=== PATIENT | male | born 1985 | race African-American/Black ===

== ENCOUNTER 2016-12-04 17:03 | Emergency (ER) | payer BC, OTHER ==
[~2016-12-04] VITALS: Ht 165.1 cm; Wt 154.3 kg
[2016-12-04 18:10] LABS: BILIRUBIN,URINE NEGATIVE (NEG); GLUCOSE,URINE NEGATIVE (NEG); NITRITE,URINE NEGATIVE (NEG); PROTEIN,URINE NEGATIVE (NEG-TRACE); UROBILINOGEN,URINE 0.2 mg/dL (0.2 mg/dL)
[2016-12-04] MEDS ORDERED: IV NORMAL SALINE 500ML BAG 500 ML IV ONE (18:15)
[2016-12-04] MEDS ORDERED: ONDANSETRON PF 4 MG/2 ML VIAL. IV ONE (18:15)
[2016-12-04 18:16] LABS: BARBITURATES NEG (NEG); BENZODIAZEPINES NEG (NEG); CANNABINOIDS NEG (NEG); COCAINE NEG (NEG); METHADONE NEG (NEG); OPIATES NEG (NEG); PHENCYCLIDINE NEG (NEG)
[2016-12-04 18:25] LABS: BACTERIA,URINE 0 /HPF (0-FEW); RBC,URINE 0 /HPF (0-2); SQUAMOUS EPITHELIAL CELL,UR OCC /LPF; WBC,URINE OCC /HPF (0-4)
--- NOTE | 2016-12-04 18:32 | PHYS DOC ---
Past Medical History Past Medical History: Diverticulitis, Other Additional Past Medical Histor: obesity Past Surgical History: Cholecystectomy Alcohol Use: None Drug Use: None Adult General Chief Complaint Chief Complaint: Palpitations HPI HPI Patient is a 31 year old male who presents with complaint of palpitations and dizziness that took place approximately 1 hour prior to arrival. Patient states that he was at work when symptoms occurred. 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 Patient suddenly started feeling fluttering in his chest and became very lightheaded at onset of symptoms. Patient denied any associated chest pain, nausea, or diaphoresis. The patient states currently he feels much better but is still feeling occasional fluttering in his chest. Patient denies any known health problems and does not take any medications currently. Patient denies history of similar symptoms. Patient denies any illicit drug use. Review of Systems Review of Systems Constitutional: Lightheadedness, denies fever or chills [] Eyes: Denies change in visual acuity, redness, or eye pain [] HENT: Denies nasal congestion or sore throat [] Respiratory: Denies cough or shortness of breath [] Cardiovascular: Palpitations[] GI: Denies abdominal pain, nausea, vomiting, bloody stools or diarrhea [] : Denies dysuria or hematuria [] Musculoskeletal: Denies back pain or joint pain [] Integument: Denies rash or skin lesions [] Neurologic: Denies headache, focal weakness or sensory changes [] Current Medications Current Medications Current Medications Medications (Trade) Dose Ordered Sig/Basil Start Time Stop Time Status Last Admin Dose Admin Ondansetron HCl (Zofran) 4 mg 1X ONCE 12/04/16 18:15 12/04/16 18:16 DC 12/04/16 18:14 4 MG Sodium Chloride 500 ml @ 500 mls/hr 1X ONCE 12/04/16 18:15 12/04/16 19:14 DC 12/04/16 18:12 500 MLS/HR Allergies Allergies Allergies Coded Allergies Type Severity Reaction Last Updated Verified No Known Drug Allergies 05/26/13 No Physical Exam Physical Exam Constitutional: Alert, morbidly obese, afebrile, no acute distress. [] HENT: Normocephalic, atraumatic, bilateral external ears normal, oropharynx moist, no oral exudates, nose normal. [] Eyes: PERRLA, EOMI, conjunctiva normal, no discharge. [] Neck: Normal range of motion, no tenderness, supple, no stridor. [] Cardiovascular: Regular rhythm, occasional ectopic beats, normal rate, no murmur [] Lungs & Thorax: Bilateral breath sounds clear to auscultation [] Abdomen: Bowel sounds normal, soft, no tenderness, no masses, no pulsatile masses. [] Skin: Warm, dry, no erythema, no rash. [] Back: No tenderness, no CVA tenderness. [] Extremities: No tenderness, no cyanosis, no clubbing, ROM intact, no edema. [] Neurologic: Alert and oriented X 3, normal motor function, normal sensory function, no focal deficits noted. [] Current Patient Data Vital Signs Vital Signs Date Time Temp Pulse Resp B/P (MAP) Pulse Ox O2 Delivery O2 Flow Rate FiO2 12/04/16 18:15 79 16 133/78 (96) 99 Room Air 12/04/16 17:09 97.9 97.9 Lab Values Laboratory Tests Test 12/04/16 17:13 12/04/16 18:25 Urine Color Yellow Urine Clarity Clear Urine pH 6.0 Urine Specific Hydes 1.015 Urine Protein Negative mg/dL (NEG-TRACE) Urine Glucose (UA) Negative mg/dL (NEG) Urine Ketones (Stick) Negative mg/dL (NEG) Urine Blood Negative (NEG) Urine Nitrite Negative (NEG) Urine Bilirubin Negative (NEG) Urine Urobilinogen Dipstick 0.2 mg/dL (0.2 mg/dL) Urine Leukocyte Esterase Negative (NEG) Urine RBC 0 /HPF (0-2) Urine WBC Occ /HPF (0-4) Urine Squamous Epithelial Cells Occ /LPF Urine Bacteria 0 /HPF (0-FEW) Urine Mucus Slight /LPF Urine Opiates Screen Neg (NEG) Urine Methadone Screen Neg (NEG) Urine Barbiturates Neg (NEG) Urine Phencyclidine Screen Neg (NEG) Urine Amphetamine/Methamphetamine Neg (NEG) Urine Benzodiazepines Screen Neg (NEG) Urine Cocaine Screen Neg (NEG) Urine Cannabinoids Screen Neg (NEG) Urine Ethyl Alcohol Neg (NEG) White Blood Count 10.3 x10^3/uL (4.0-11.0) Red Blood Count 4.94 x10^6/uL (4.30-5.70) Hemoglobin 13.4 g/dL (13.0-17.5) Hematocrit 40.1 % (39.0-53.0) Mean Corpuscular Volume 81 fL (79-100) Mean Corpuscular Hemoglobin 27 pg (25-35) Mean Corpuscular Hemoglobin Concent 33 g/dL (31-37) Red Cell Distribution Width 14.0 % (11.5-14.5) Platelet Count 184 x10^3/uL (140-400) Neutrophils (%) (Auto) 63 % (31-73) Lymphocytes (%) (Auto) 26 % (24-48) Monocytes (%) (Auto) 8 % (0-9) Eosinophils (%) (Auto) 2 % (0-3) Basophils (%) (Auto) 1 % (0-3) Neutrophils # (Auto) 6.5 x10^3uL (1.8-7.7) Lymphocytes # (Auto) 2.7 x10^3/uL (1.0-4.8) Monocytes # (Auto) 0.8 x10^3/uL (0.0-1.1) Eosinophils # (Auto) 0.2 x10^3/uL (0.0-0.7) Basophils # (Auto) 0.1 x10^3/uL (0.0-0.2) Sodium Level 143 mmol/L (136-145) Potassium Level 3.9 mmol/L (3.5-5.1) Chloride Level 105 mmol/L (98-107) Carbon Dioxide Level 32 mmol/L (21-32) Anion Gap 6 (6-14) Blood Urea Nitrogen 13 mg/dL (8-26) Creatinine 0.9 mg/dL (0.7-1.3) Estimated GFR (Cockcroft-Gault) 118.3 BUN/Creatinine Ratio 14 (6-20) Glucose Level 100 mg/dL (70-99) H Calcium Level 8.6 mg/dL (8.5-10.1) Total Bilirubin 0.2 mg/dL (0.2-1.0) Aspartate Amino Transferase (AST) 28 U/L (15-37) Alanine Aminotransferase (ALT) 34 U/L (16-63) Alkaline Phosphatase 106 U/L (46-116) Total Protein 7.8 g/dL (6.4-8.2) Albumin 3.5 g/dL (3.4-5.0) Albumin/Globulin Ratio 0.8 (1.0-1.7) L Laboratory Tests 12/04/16 18:25 Laboratory Tests 12/04/16 18:25 EKG EKG Interpreted by me: Heart rate 83, sinus rhythm, normal intervals, leftward axis , occasional PVCs, no acute ST/T-wave abnormalities present[] Radiology/Procedures Radiology/Procedures Two-view chest x-ray interpreted by me: No infiltrates, no effusions, normal cardiac silhouette[] Course & Med Decision Making Course & Med Decision Making Pertinent Labs and Imaging studies reviewed. (See chart for details) Patient given IV fluids in the emergency department. Patient's labwork unremarkable. Patient has no known significant past medical history. Patient shows occasional PVCs but no other cardiac dysrhythmias. The patient is low risk for acute coronary syndrome. I spoke with Dr. Bourgeois of cardiology. He stated he would be willing to follow-up with the patient tomorrow in his office and stated that the patient would not need to be started on medication at this time until he sees him in the office tomorrow. Spoke with patient regarding plan of care and he was in agreement at time of discharge.[] Dragon Disclaimer Dragon Disclaimer This electronic medical record was generated, in whole or in part, using a voice recognition dictation system. Departure Departure Impression: Primary Impression: Palpitations Disposition: 01 HOME, SELF-CARE Condition: IMPROVED Referrals: NON,STAFF (PCP) NHI BOURGEOIS MD Patient Instructions: Palpitations Additional Instructions: Follow-up with Dr. Bourgeois of cardiology tomorrow. Call his office in the morning to schedule your appointment. Return to the emergency department for any worsening symptoms. BLANE MADDOX MD Dec 04, 2016 18:32
[2016-12-04 18:50] LABS: BASO # 0.1 x10^3/uL (0.0-0.2); BASO % 1 % (0-3); EOS % 2 % (0-3); HEMATOCRIT 40.1 % (39.0-53.0); HEMOGLOBIN 13.4 g/dL (13.0-17.5); LYMPH # 2.7 x10^3/uL (1.0-4.8); LYMPH % 26 % (24-48); MEAN CORPUSCULAR HEMOGLOBIN 27 pg (25-35); MEAN CORPUSCULAR HGB CONC 33 g/dL (31-37); MEAN CORPUSCULAR VOLUME 81 fL (79-100); MONO % 8 % (0-9); NEUT % 63 % (31-73); PLATELET COUNT 184 x10^3/uL (140-400); RED BLOOD COUNT 4.94 x10^6/uL (4.30-5.70); WHITE BLOOD COUNT 10.3 x10^3/uL (4.0-11.0)
[2016-12-04 19:00] LABS: CALCIUM 8.6 mg/dL (8.5-10.1); CREATININE 0.9 mg/dL (0.7-1.3); GFR 118.3; POTASSIUM 3.9 mmol/L (3.5-5.1)
[2016-12-04 19:09] LABS: ALBUMIN 3.5 g/dL (3.4-5.0); ALBUMIN/GLOBULIN RATIO 0.8 (1.0-1.7); TOTAL BILIRUBIN 0.2 mg/dL (0.2-1.0); TOTAL PROTEIN 7.8 g/dL (6.4-8.2)
[2016-12-04 20:15] VITALS: BP 168/86
--- NOTE | 2016-12-05 06:13 | EKG ---
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
--- NOTE | 2016-12-05 08:55 | RAD ---
Indication heart palpitations. Lightheadedness. Frontal and lateral views of the chest were obtained and are compared to an examination 12/11/2011. The heart, pulmonary vessels and mediastinum appear normal. The lungs are clear. There is no pleural fluid or pneumothorax. The visualized bony structures appear grossly intact. Overall there has not been a significant change compared to the previous exam. IMPRESSION: No acute or focal process. No significant change
== END 2016-12-04 20:15 | disposition home or self-care (01) ==
LOC: ER 17:03
DX: R00.2 Palpitations (principal); R42 Dizziness and giddiness; E66.01 Morbid (severe) obesity due to excess calories; Z68.43 Body mass index [BMI] 50.0-59.9, adult
CPT/HCPCS: 36415; 71020; 80053; 80307; 81001; 85025; 93005; 96361; 96374; 99285; J2405; J7040; G0479

== ENCOUNTER 2018-10-28 22:24 | Emergency (ER) | payer OTHER ==
[~2018-10-28] VITALS: Ht 165.1 cm; Wt 172.4 kg
[2018-10-29] MEDS ORDERED: IV NORMAL SALINE 1000ML BAG 1,000 ML IV ONE (00:30)
[2018-10-29] MEDS ORDERED: ASPIRIN 325 MG TABLET PO ONE (00:30)
[2018-10-29 00:36] LABS: BASO # 0.1 x10^3/uL (0.0-0.2); BASO % 1 % (0-3); EOS # 0.5 x10^3/uL (0.0-0.7); EOS % 5 % (0-3); HEMATOCRIT 39.3 % (39.0-53.0); HEMOGLOBIN 13.2 g/dL (13.0-17.5); LYMPH # 2.7 x10^3/uL (1.0-4.8); LYMPH % 26 % (24-48); MEAN CORPUSCULAR HEMOGLOBIN 27 pg (25-35); MEAN CORPUSCULAR HGB CONC 34 g/dL (31-37); MEAN CORPUSCULAR VOLUME 80 fL (79-100); MONO # 0.8 x10^3/uL (0.0-1.1); MONO % 7 % (0-9); NEUT # 6.6 x10^3/uL (1.8-7.7); NEUT % 62 % (31-73); PLATELET COUNT 210 x10^3/uL (140-400); RED BLOOD COUNT 4.91 x10^6/uL (4.30-5.70); RED CELL DISTRIBUTION WIDTH 14.8 % (11.5-14.5); WHITE BLOOD COUNT 10.6 x10^3/uL (4.0-11.0)
[2018-10-29 00:46] LABS: PROTHROMBIN TIME PATIENT 12.3 SEC (11.7-14.0)
[2018-10-29 00:48] LABS: CALCIUM 9.2 mg/dL (8.5-10.1); GFR 103.5; POTASSIUM 4.2 mmol/L (3.5-5.1)
[2018-10-29 00:50] LABS: D-DIMER 1.45 ug/mlFEU (0.00-0.50)
[2018-10-29 00:54] LABS: ALBUMIN 3.5 g/dL (3.4-5.0); ALBUMIN/GLOBULIN RATIO 0.8 (1.0-1.7); MAGNESIUM 1.6 mg/dL (1.8-2.4); TOTAL BILIRUBIN 0.3 mg/dL (0.2-1.0); TOTAL PROTEIN 7.8 g/dL (6.4-8.2)
--- NOTE | 2018-10-29 01:20 | PHYS DOC ---
Past Medical History Past Medical History: Asthma, Diverticulitis Additional Past Medical Histor: obesity Past Surgical History: Cholecystectomy Additional Past Surgical Histo: VASECTOMY Additional Information: Nonsmoker Alcohol Use: None Drug Use: None Adult General Chief Complaint Chief Complaint: CHEST PAIN HPI HPI Patient is a 33 year old male who presents with chest pain. Pt reports sudden onset of chest pain started at 20:30 last night when he was sitting on his couch watching TV. The chest pain was sharp, pleuritic and radiated to his back. He also endorses some SOB and lightheaded. Pt denies any unilateral leg tenderness. Pt reports having some cough recently but denies any hemoptysis. No recent travel. He reports that he was found to have an arrhythmia in the past and was told that it would be ok. Denies any history of cancer, starting new medications or hormone therapy. Review of Systems Review of Systems Constitutional: Denies fever or chills Eyes: Denies redness or eye pain HENT: Denies nasal congestion or sore throat Respiratory: Denies cough. Positive shortness of breath Cardiovascular: Positive chest pain. No palpitations GI: Denies abdominal pain, nausea, or vomiting : Denies dysuria or hematuria Musculoskeletal: Denies back pain or joint pain Integument: Denies rash or skin lesions Neurologic: Denies headache, focal weakness or sensory changes Complete systems were reviewed and found to be within normal limits, except as documented in this note. Current Medications Current Medications Current Medications Medications (Trade) Dose Ordered Sig/Basil Start Time Stop Time Status Last Admin Dose Admin Aspirin (Rufino Aspirin) 325 mg 1X ONCE 10/29/18 00:30 10/29/18 00:31 DC 10/29/18 00:46 325 MG Dexamethasone Sodium Phosphate (Decadron) 10 mg 1X ONCE 10/29/18 03:15 10/29/18 03:16 DC 10/29/18 04:09 10 MG Info (CONTRAST GIVEN -- Rx MONITORING) 1 each PRN DAILY PRN 10/29/18 02:00 10/29/18 04:53 DC Iohexol (Omnipaque 350 Mg/ml) 100 ml 1X ONCE 10/29/18 02:00 10/29/18 02:01 DC 10/29/18 02:40 100 ML Ketorolac Tromethamine (Toradol 15mg Vial) 15 mg 1X ONCE 10/29/18 03:15 10/29/18 03:16 DC 10/29/18 04:09 15 MG Magnesium Sulfate 50 ml @ 25 mls/hr 1X ONCE 10/29/18 01:30 10/29/18 03:29 DC 10/29/18 01:43 25 MLS/HR Sodium Chloride 1,000 ml @ 1,000 mls/hr 1X ONCE 10/29/18 00:30 10/29/18 01:29 DC 10/29/18 00:46 1,000 MLS/HR Allergies Allergies Allergies Coded Allergies Type Severity Reaction Last Updated Verified No Known Drug Allergies 05/26/13 No Physical Exam Physical Exam Constitutional: Well developed, well nourished, no acute distress, non-toxic appearance, rest comfortably in bed HENT: Normocephalic, atraumatic, oropharynx moist Eyes: PERRL, EOMI, conjunctiva normal, no discharge Neck: Normal range of motion, no tenderness, supple Cardiovascular: Heart rate normal, regular rhythm Lungs & Thorax: Bilateral breath sounds clear to auscultation, no wheezing. No tenderness on palpation. Abdomen: Soft, no tenderness Skin: Warm, dry, no erythema, no rash Back: No tenderness, no CVA tenderness Extremities: No tenderness, ROM intact, no edema Neurologic: Alert and oriented X 3, normal motor function, normal sensory function, no focal deficits noted Psychologic: Affect normal, judgement normal, mood normal Current Patient Data Vital Signs Vital Signs Date Time Temp Pulse Resp B/P (MAP) Pulse Ox O2 Delivery O2 Flow Rate FiO2 10/29/18 04:23 76 20 172/81 (111) 93 Room Air 10/28/18 22:47 97.9 97.9 Lab Values Laboratory Tests Test 10/29/18 00:25 10/29/18 03:30 White Blood Count 10.6 x10^3/uL (4.0-11.0) Red Blood Count 4.91 x10^6/uL (4.30-5.70) Hemoglobin 13.2 g/dL (13.0-17.5) Hematocrit 39.3 % (39.0-53.0) Mean Corpuscular Volume 80 fL (79-100) Mean Corpuscular Hemoglobin 27 pg (25-35) Mean Corpuscular Hemoglobin Concent 34 g/dL (31-37) Red Cell Distribution Width 14.8 % (11.5-14.5) H Platelet Count 210 x10^3/uL (140-400) Neutrophils (%) (Auto) 62 % (31-73) Lymphocytes (%) (Auto) 26 % (24-48) Monocytes (%) (Auto) 7 % (0-9) Eosinophils (%) (Auto) 5 % (0-3) H Basophils (%) (Auto) 1 % (0-3) Neutrophils # (Auto) 6.6 x10^3/uL (1.8-7.7) Lymphocytes # (Auto) 2.7 x10^3/uL (1.0-4.8) Monocytes # (Auto) 0.8 x10^3/uL (0.0-1.1) Eosinophils # (Auto) 0.5 x10^3/uL (0.0-0.7) Basophils # (Auto) 0.1 x10^3/uL (0.0-0.2) Prothrombin Time 12.3 SEC (11.7-14.0) Prothrombin Time INR 0.9 (0.8-1.1) D-Dimer (Luanne) 1.45 ug/mlFEU (0.00-0.50) H Sodium Level 140 mmol/L (136-145) Potassium Level 4.2 mmol/L (3.5-5.1) Chloride Level 102 mmol/L (98-107) Carbon Dioxide Level 33 mmol/L (21-32) H Anion Gap 5 (6-14) L Blood Urea Nitrogen 15 mg/dL (8-26) Creatinine 1.0 mg/dL (0.7-1.3) Estimated GFR (Cockcroft-Gault) 103.5 BUN/Creatinine Ratio 15 (6-20) Glucose Level 117 mg/dL (70-99) H Calcium Level 9.2 mg/dL (8.5-10.1) Magnesium Level 1.6 mg/dL (1.8-2.4) L Total Bilirubin 0.3 mg/dL (0.2-1.0) Aspartate Amino Transferase (AST) 60 U/L (15-37) H Alanine Aminotransferase (ALT) 74 U/L (16-63) H Alkaline Phosphatase 116 U/L (46-116) Creatine Kinase 800 U/L (39-308) H Creatine Kinase MB (Mass) 2.3 ng/mL (0.0-3.6) Creatine Kinase MB Relative Index 0.3 % (0-4) Troponin I Quantitative < 0.017 ng/mL (0.000-0.055) < 0.017 ng/mL (0.000-0.055) JO-Yey-F-Type Natriuretic Peptide 85 pg/mL (0-124) Total Protein 7.8 g/dL (6.4-8.2) Albumin 3.5 g/dL (3.4-5.0) Albumin/Globulin Ratio 0.8 (1.0-1.7) L Lipase 92 U/L (73-393) Laboratory Tests 10/29/18 00:25 Laboratory Tests 10/29/18 00:25 EKG EKG 10/28/2018 23:43 Sinus rhythm with the rate of 89. Inverted T waves in III and V1. No ST elevation. Radiology/Procedures Radiology/Procedures [] Course & Med Decision Making Course & Med Decision Making Pertinent Labs and Imaging studies reviewed. (See chart for details) [] Dragon Disclaimer Dragon Disclaimer This electronic medical record was generated, in whole or in part, using a voice recognition dictation system. Departure Departure Impression: Primary Impression: Chest pain Additional Impression: Pleurisy Disposition: 01 HOME, SELF-CARE Condition: IMPROVED Referrals: KAYLEEN DIAZ (PCP) Patient Instructions: Chest Pain (Nonspecific), [id number], Pleurisy, [id number] Scripts Prednisone (PREDNISONE) 20 Mg Tablet 2 TAB PO DAILY, #8 TAB Prov: CÉSAR ERWIN DO 10/29/18 Albuterol Sulfate (Proair Hfa) 8.5 Gm Hfa.aer.ad 1 PUFF INH PRN Q6HRS PRN for SHORTNESS OF BREATH, #1 INHALER Prov: CÉSAR ERWIN DO 10/29/18 The HEART Score for CP Pts HEART Score for Chest Pain: HEART Score for Chest Pain Response (Comments) Value History Moderately Suspicious 1 ECG Normal 0 Age < 45 0 Risk Factors 1 or 2 Risk Factors 1 Troponin < Normal Limit 0 Total 2 Risk Factors: Risk Factors: DM, Current or recent (<one month) smoker, HTN, HLP, family history of CAD, obesity. Risk Scores: Score 0 - 3: 2.5% MACE over next 6 weeks - Discharge Home Score 4 - 6: 20.3% MACE over next 6 weeks - Admit for Clinical Observation Score 7 - 10: 72.7% MACE over next 6 weeks - Early Invasive Strategies Problem Qualifiers Primary Impression: Chest pain Chest pain type: unspecified Qualified Codes: R07.9 - Chest pain, unspecified CÉSAR ERWIN DO Oct 29, 2018 01:20
[2018-10-29] MEDS ORDERED: MAGNESIUM SULFATE 2GM 50 ML IV ONE (01:30)
[2018-10-29] MEDS ORDERED: IOHEXOL 350 MG/ML 100 ML VIAL. IV ONE (02:00)
[2018-10-29] MEDS ORDERED: CONTRAST GIVEN. MC PRN (02:00)
--- NOTE | 2018-10-29 02:56 | RAD ---
CT arteriogram of the chest. HISTORY: Elevated d-dimer, chest pain CT arteriogram of the chest was done using 100 mL Omnipaque 350 contrast. Sagittal and coronal MIP images were reconstructed. Visualized portions the liver and spleen are unremarkable. Adrenal glands are normal. Pancreas is normal. Upper poles the kidneys are unremarkable. There is no pleural effusion. There is no mediastinal adenopathy. There is normal thymic tissue in the anterior mediastinum. Thyroid is homogeneous. Lungs are free of infiltrates. There is a 5 mm nodule along the fissure in the right lung, no follow-up would be recommended for low risk individuals. There is a calcified granuloma in the right lower lobe. There is no effusion. This study is negative for evidence of a pulmonary embolus. IMPRESSION: 1. Small right lung pulmonary nodules. 2. No infiltrates noted. 3. Negative for pulmonary embolus. PQRS Compliance Statement: One or more of the following individualized dose reduction techniques were utilized for this examination: 1. Automated exposure control 2. Adjustment of the mA and/or kV according to patient size 3. Use of iterative reconstruction technique Electronically signed by: Giancarlo Martinez MD (10/29/2018 2:53 AM) [facility]
[2018-10-29] MEDS ORDERED: DEXAMETHASONE SOD PHOS 20 MG/5 ML VIAL. IV ONE (03:15)
[2018-10-29] MEDS ORDERED: KETOROLAC 15 MG/ML VIAL. IV ONE (03:15)
[2018-10-29] MEDS ORDERED: PRED20TA PO (04:11)
[2018-10-29] MEDS ORDERED: ALBU2.5V8 INH (04:11)
[2018-10-29 04:23] VITALS: BP 172/81
--- NOTE | 2018-10-29 06:10 | EKG ---
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
== END 2018-10-29 04:50 | disposition home or self-care (01) ==
LOC: ER 22:24
DX: R07.81 Pleurodynia (principal); R42 Dizziness and giddiness; J45.909 Unspecified asthma, uncomplicated; E66.9 Obesity, unspecified; Z68.44 Body mass index [BMI] 60.0-69.9, adult
CPT/HCPCS: 36415; 71275; 80053; 82553; 83690; 83735; 83880; 84484; 85025; 85379; 85610; 93005; 96361; 96365; 96366; 96375; 99285; J1100; J1885; J3475; J7030; Q9967